=== PATIENT | female | born 1980 | race Caucasian/White ===

== ENCOUNTER 2017-02-02 15:03 | Emergency (ER) | payer MEDICARE, MEDICAID ==
[~2017-02-02 15:03] MED LIST: ABILIFY2 M1 PO; ALBUTEROL INHALER; ALBUTEROL SULF8.5 GM INH; AMBIEN10 MG PO; ANALGESIC BALM30 G1 EXT; BACTROBAN22 GM TP; CARDIZEM90 MG PO; CITRATE OF MAG300 ML PO; CLARITIN-D 121 EACH PO; CULTURELLE1 EAC1 PO; DEPAKOTE ER500 M1 PO; DILTIAZEM HCL PO; DILTIAZEM HCL90 M1 PO; DULCOLAX10 MG/SUPP RC; DUONEB 2.5-0.5 M3 ML IH; EFFEXOR XR75 MG PO; EFFEXOR75 M1 PO; INDOMETHACIN25 M1 PO; IPRAT-ALBUT 0.5-3 ML INH; KLOR-CON M20 MEQ/TAB PO; KLOR-CON M2020 MEQ PO; LEVAQUIN750 M1 PO; LEVAQUIN750 MG PO; LEXAPRO20 MG; LOPRESSOR25 MG/TA7 PO; LOVENOX40 MG/0.4 SQ; MIRALAX17 G1 PO; MOTRIN800 MG PO; MUCINEX1200 MG PO; MYCOSTATIN15 GM TP; NEURONTIN100 M1 PO; NICODERM CQ1 EAC1 TD; NORCO 5/3251 TA1 PO; NYSTATIN60 ML PO; PERIDEX480 ML MM; PREDNISONE10 M1 PO; PREDNISONE50 M1 PO; PRENATAL1 TAB; PROAIR HFA8.5 GM INH; PROVENTIL HFA6.7 GM IH; SENNA GT; STERAPRED10 MG/DOSE PO; SUDOGEST60 MG/TAB PO; SYMBICORT 160-4.6 GM IH; TAMIFLU75 MG/CAP NG; TAMIFLU75 MG/CAP PO; TOBRAMYCIN-DEXAM5 M2; TYLENOL325 M1 PO; XANAX0.5 MG PO; ZEGERID 40 MG P1 PKT PO; [UNRECOGNIZED DRUG - OTHER] PO
[2017-02-02] MEDS ORDERED: PROVENTIL HFA6.7 G1 PO (15:21)
[2017-02-02 16:17] LABS: BASO % 0.1 % (0-2); EOS % 1.6 % (0-7); EOSINOPHIL ABSOLUTE COUNT 0.2 tho/cmm (0.0-0.7); HCT-HEMATOCRIT 42.4 % (34.0-49.0); HGB-HEMOGLOBIN 13.5 gm/dl (12.0-15.5); IMMATURE GRANULOCYTES ABSOLUTE 0.05 tho/cmm (0-0.03); IMMATURE GRANULOCYTES PERCENT 0.4 % (0-0.3); LYMPH % 17.8 % (20-45); MCH (MEAN CORPUSCULAR HGB) 32.3 pg (28.0-32.0); MCHC MEAN CORPUSCULAR HGB CONC 31.8 % (32.0-36.0); MCV (MEAN CELL VOLUME) 101.4 fl (82.0-96.0); MEAN PLATELET VOLUME 9.5 cmc (9.4-12.4); MONO % 5.1 % (0-12); MONOCYTE ABSOLUTE COUNT 0.6 tho/cmm (0.0-1.2); NEUTROPHIL ABSOLUTE COUNT 8.4 tho/cmm (1.6-8.0); NEUTROPHIL-AUTOMATED 8.4 tho/cmm (1.6-8.0); PLATELET COUNT 355 tho/cmm (150-450); RED BLOOD COUNT 4.18 mil/cmm (4.00-5.20); RED CELL DISTRIBUTION WIDTH 12.9 % (12.4-16.4); WHITE BLOOD COUNT 11.2 tho/cmm (4.0-10.0)
[2017-02-02 16:29] LABS: ANION GAP 6 mmol/L (0-20); BLOOD UREA NITROGEN 3 mg/dl (6-24); CALCIUM 8.2 mg/dl (8.5-10.5); CARBON DIOXIDE-VENOUS 37 mmol/L (22-32); CHLORIDE 102 mmol/l (96-110); CREATININE 0.44 mg/dl (0.50-1.10); GLUCOSE 77 mg/dL (70-110); POTASSIUM 4.1 mmol/L (3.7-5.1); SODIUM 141 mmol/L (135-145); eGFR VALUE FOR BLACK >90 mL/Min
[2017-02-02] MEDS ORDERED: PREDNISONE20 M1 PO (16:43)
[2017-02-02] MEDS ORDERED: ALBUTEROL1.25 MG/3 INH (16:43)
[2017-02-03] MEDS ORDERED: PREDNISONE20 M1 PO (22:07)
[2017-02-03] MEDS ORDERED: ALBUTEROL1.25 MG/3 INH (22:07)
[2017-02-03] MEDS ORDERED: VENTOLIN HFA18 G2 PO (22:08)
[2017-02-03] MEDS ORDERED: SYMBICORT 160-1 PUFF INH (22:09)
== END 2017-02-02 17:16 ==
LOC: EDMED 15:03
PROVIDERS: Emergency Medicine
DX: J45.901 Unspecified asthma with (acute) exacerbation (principal); Z88.0 Allergy status to penicillin; F17.200 Nicotine dependence, unspecified, uncomplicated
CPT/HCPCS: J2930

== ENCOUNTER 2017-02-03 21:16 | Inpatient (IN) | payer MEDICARE, MEDICAID ==
[~2017-02-03 21:16] MED LIST changes: +ALBUTEROL1.25 MG/3 INH; +PREDNISONE20 M1 PO; +PROVENTIL HFA6.7 G1 PO
[2017-02-03 21:48] LABS: BASO % 0.1 % (0-2); EOS % 0.1 % (0-7); HCT-HEMATOCRIT 44.5 % (34.0-49.0); HGB-HEMOGLOBIN 14.3 gm/dl (12.0-15.5); IMMATURE GRANULOCYTES ABSOLUTE 0.09 tho/cmm (0-0.03); IMMATURE GRANULOCYTES PERCENT 0.7 % (0-0.3); LYMPH ABSOLUTE COUNT 1.5 tho/cmm (0.8-4.5); MCH (MEAN CORPUSCULAR HGB) 32.1 pg (28.0-32.0); MCHC MEAN CORPUSCULAR HGB CONC 32.1 % (32.0-36.0); MEAN PLATELET VOLUME 10.3 cmc (9.4-12.4); MONO % 7.6 % (0-12); NEUTROPHIL ABSOLUTE COUNT 10.8 tho/cmm (1.6-8.0); NEUTROPHIL-AUTOMATED 10.8 tho/cmm (1.6-8.0); NEUTROPHILS % 80.5 % (40-80); PLATELET COUNT 441 tho/cmm (150-450); RED BLOOD COUNT 4.45 mil/cmm (4.00-5.20); RED CELL DISTRIBUTION WIDTH 13.2 % (12.4-16.4); WHITE BLOOD COUNT 13.5 tho/cmm (4.0-10.0)
[2017-02-03 22:06] LABS: BLOOD UREA NITROGEN 8 mg/dl (6-24); CARBON DIOXIDE-VENOUS 35 mmol/L (22-32); CHLORIDE 102 mmol/l (96-110); CREATININE 0.59 mg/dl (0.50-1.10); SODIUM 141 mmol/L (135-145); eGFR VALUE FOR BLACK >90 mL/Min
[2017-02-03] MEDS ORDERED: ALBUTEROL1.25 MG/3 INH (22:07)
[2017-02-03] MEDS ORDERED: PREDNISONE20 M1 PO (22:07)
[2017-02-03] MEDS ORDERED: VENTOLIN HFA18 G2 PO (22:08)
[2017-02-03] MEDS ORDERED: SYMBICORT 160-1 PUFF INH (22:09)
[2017-02-03 22:32] LABS: PROCALCITONIN <0.05 ng/ml (0.05-0.09)
[2017-02-03 22:39] LABS: ANION GAP 8 mmol/L (0-20); GLUCOSE 131 mg/dL (70-110); POTASSIUM 4.3 mmol/L (3.7-5.1)
[2017-02-04 01:47] LABS: ALB/GLOB RATIO 0.8 (0.8-2.0); ALBUMIN 2.9 g/dl (3.5-5.0); ALKALINE PHOSPHATASE 72 U/L (33-138); ALT/SGPT 19 U/L (12-78); BILIRUBIN,TOTAL 0.1 mg/dl (0-1.5); BLOOD UREA NITROGEN 8 mg/dl (6-24); CALCIUM 7.8 mg/dl (8.5-10.5); CARBON DIOXIDE-VENOUS 32 mmol/L (22-32); CHLORIDE 106 mmol/l (96-110); CREATININE 0.59 mg/dl (0.50-1.10); GLUCOSE 126 mg/dL (70-110); SODIUM 144 mmol/L (135-145); eGFR VALUE FOR BLACK >90 mL/Min
[2017-02-04 02:00] LABS: ANION GAP 10 mmol/L (0-20); AST/SGOT 14 U/L (10-40); POTASSIUM 4.4 mmol/L (3.7-5.1)
[2017-02-04 02:27] LABS: URINE BILIRUBIN NEGATIVE (NEG); URINE BLOOD NEGATIVE (NEG); URINE GLUCOSE (UA) NEGATIVE (NEG); URINE KETONE NEGATIVE (NEG); URINE LEUKOCYTE ESTERASE NEGATIVE (NEG); URINE NITRITE NEGATIVE (NEG); URINE PROTEIN NEGATIVE (NEG)
[2017-02-04 02:38] LABS: URINE APPEARANCE CLEAR; URINE COLOR YELLOW
[2017-02-04 02:41] LABS: URINE EPITHELIAL CELLS 0-5 /[HPF] (0-10); URINE RBC 0 /[HPF] (0-5); URINE WBC 0-1 /[HPF] (0-5)
[2017-02-04 05:56] LABS: BASO % 0.1 % (0-2); HGB-HEMOGLOBIN 12.4 gm/dl (12.0-15.5); IMMATURE GRANULOCYTES ABSOLUTE 0.05 tho/cmm (0-0.03); IMMATURE GRANULOCYTES PERCENT 0.5 % (0-0.3); LYMPH % 7.8 % (20-45); LYMPH ABSOLUTE COUNT 0.9 tho/cmm (0.8-4.5); MCH (MEAN CORPUSCULAR HGB) 31.4 pg (28.0-32.0); MCV (MEAN CELL VOLUME) 101.3 fl (82.0-96.0); MEAN PLATELET VOLUME 9.7 cmc (9.4-12.4); MONO % 2.3 % (0-12); MONOCYTE ABSOLUTE COUNT 0.3 tho/cmm (0.0-1.2); NEUTROPHIL ABSOLUTE COUNT 9.8 tho/cmm (1.6-8.0); NEUTROPHIL-AUTOMATED 9.8 tho/cmm (1.6-8.0); NEUTROPHILS % 89.3 % (40-80); PLATELET COUNT 372 tho/cmm (150-450); RED BLOOD COUNT 3.95 mil/cmm (4.00-5.20)
[2017-02-04 06:53] LABS: ANION GAP 11 mmol/L (0-20); BLOOD UREA NITROGEN 9 mg/dl (6-24); CALCIUM 7.7 mg/dl (8.5-10.5); CARBON DIOXIDE-VENOUS 32 mmol/L (22-32); CHLORIDE 104 mmol/l (96-110); GLUCOSE 161 mg/dL (70-110); SODIUM 143 mmol/L (135-145); eGFR VALUE FOR BLACK >90 mL/Min
[2017-02-05 05:41] LABS: BASO % 0.1 % (0-2); HCT-HEMATOCRIT 40.9 % (34.0-49.0); HGB-HEMOGLOBIN 12.6 gm/dl (12.0-15.5); IMMATURE GRANULOCYTES PERCENT 0.9 % (0-0.3); LYMPH % 13.3 % (20-45); LYMPH ABSOLUTE COUNT 1.5 tho/cmm (0.8-4.5); MCH (MEAN CORPUSCULAR HGB) 31.3 pg (28.0-32.0); MCHC MEAN CORPUSCULAR HGB CONC 30.8 % (32.0-36.0); MCV (MEAN CELL VOLUME) 101.7 fl (82.0-96.0); MEAN PLATELET VOLUME 9.8 cmc (9.4-12.4); MONO % 4.7 % (0-12); MONOCYTE ABSOLUTE COUNT 0.5 tho/cmm (0.0-1.2); NEUTROPHIL ABSOLUTE COUNT 8.9 tho/cmm (1.6-8.0); NEUTROPHIL-AUTOMATED 8.9 tho/cmm (1.6-8.0); PLATELET COUNT 381 tho/cmm (150-450); RED BLOOD COUNT 4.02 mil/cmm (4.00-5.20)
[2017-02-05 06:12] LABS: ANION GAP 9 mmol/L (0-20); BLOOD UREA NITROGEN 7 mg/dl (6-24); CALCIUM 8.9 mg/dl (8.5-10.5); CARBON DIOXIDE-VENOUS 36 mmol/L (22-32); CHLORIDE 103 mmol/l (96-110); CREATININE 0.57 mg/dl (0.50-1.10); GLUCOSE 122 mg/dL (70-110); POTASSIUM 4.4 mmol/L (3.7-5.1); SODIUM 144 mmol/L (135-145); eGFR VALUE FOR BLACK >90 mL/Min
[2017-02-05] MEDS ORDERED: PREDNISONE10 M1 PO (10:47)
[2017-02-05] MEDS ORDERED: LEVAQUIN750 M1 PO (10:48)
[2017-02-05] MEDS ORDERED: MUCINEX SINUS-1 EAC3 PO (10:54)
== END 2017-02-05 12:55 | DRG 189 ==
LOC: EDMED 21:16 → EMR2 23:15 → 5WE 02-04 00:45
PROVIDERS: Emergency Medicine; Family Medicine; ADMIT Hospitalist
PROC: 05HF33Z Insertion of Infusion Device into Left Cephalic Vein, Percutaneous Approach (ICD-10-PCS; principal; 2017-02-04)
DX: J96.21 Acute and chronic respiratory failure with hypoxia (principal); J18.1 Lobar pneumonia, unspecified organism; Z99.81 Dependence on supplemental oxygen; J44.0 Chronic obstructive pulmonary disease with (acute) lower respiratory infection; J45.901 Unspecified asthma with (acute) exacerbation; J44.1 Chronic obstructive pulmonary disease with (acute) exacerbation; Z68.41 Body mass index [BMI] 40.0-44.9, adult; F17.210 Nicotine dependence, cigarettes, uncomplicated; Z71.6 Tobacco abuse counseling; Z86.19 Personal history of other infectious and parasitic diseases; I10 Essential (primary) hypertension; F32.9 Major depressive disorder, single episode, unspecified; F41.9 Anxiety disorder, unspecified; E66.01 Morbid (severe) obesity due to excess calories
CPT/HCPCS: C1751; J1650; J1956; J2930; J7030

== ENCOUNTER 2017-02-18 10:12 | Inpatient (IN) | payer MEDICARE, MEDICAID ==
[~2017-02-18 10:12] MED LIST changes: +MUCINEX SINUS-1 EAC3 PO; +SYMBICORT 160-1 PUFF INH; +VENTOLIN HFA18 G2 PO
[2017-02-18 11:12] LABS: ABG CO2 ARTERIAL 39 mmol/L (21-27); ARTERIAL BLD GAS O2 SATURATION 94 % (95-98); ARTERIAL PO2 74 mmHg (70-100); BICARBONATE 36 mmol/L (21-28); BLOOD GAS BASE EXCESS 6 mM/L (-/+3); PH 7.26 Units (7.35-7.45)
[2017-02-18 11:15] LABS: BASO % 0.3 % (0-2); EOS % 0.5 % (0-7); HCT-HEMATOCRIT 43.1 % (34.0-49.0); HGB-HEMOGLOBIN 13.4 gm/dl (12.0-15.5); IMMATURE GRANULOCYTES ABSOLUTE 0.06 tho/cmm (0-0.03); LYMPH % 21.7 % (20-45); LYMPH ABSOLUTE COUNT 1.4 tho/cmm (0.8-4.5); MCH (MEAN CORPUSCULAR HGB) 31.7 pg (28.0-32.0); MCHC MEAN CORPUSCULAR HGB CONC 31.1 % (32.0-36.0); MCV (MEAN CELL VOLUME) 101.9 fl (82.0-96.0); MEAN PLATELET VOLUME 9.9 cmc (9.4-12.4); MONO % 14.2 % (0-12); MONOCYTE ABSOLUTE COUNT 0.9 tho/cmm (0.0-1.2); NEUTROPHIL ABSOLUTE COUNT 3.9 tho/cmm (1.6-8.0); NEUTROPHIL-AUTOMATED 3.9 tho/cmm (1.6-8.0); NEUTROPHILS % 62.3 % (40-80); PLATELET COUNT 176 tho/cmm (150-450); RED BLOOD COUNT 4.23 mil/cmm (4.00-5.20); RED CELL DISTRIBUTION WIDTH 13.8 % (12.4-16.4); WHITE BLOOD COUNT 6.3 tho/cmm (4.0-10.0)
[2017-02-18 11:17] LABS: ARTERIAL BLOOD GAS PCO2 83 mmHg (32-45)
[2017-02-18 11:37] LABS: ALB/GLOB RATIO 0.8 (0.8-2.0); ALBUMIN 2.8 g/dl (3.5-5.0); ALKALINE PHOSPHATASE 59 U/L (33-138); ALT/SGPT 21 U/L (12-78); BILIRUBIN,TOTAL 0.2 mg/dl (0-1.5); BLOOD UREA NITROGEN 5 mg/dl (6-24); CALCIUM 8.1 mg/dl (8.5-10.5); CARBON DIOXIDE-VENOUS 36 mmol/L (22-32); CHLORIDE 101 mmol/l (96-110); CREATININE 0.56 mg/dl (0.50-1.10); GLUCOSE 91 mg/dL (70-110); SODIUM 141 mmol/L (135-145); eGFR VALUE FOR BLACK >90 mL/Min
[2017-02-18 11:39] LABS: ANION GAP 9 mmol/L (0-20); AST/SGOT 25 U/L (10-40); POTASSIUM 4.7 mmol/L (3.7-5.1)
[2017-02-18 11:55] LABS: PROCALCITONIN <0.05 ng/ml (0.05-0.09)
[2017-02-18 13:01] LABS: PREGNANCY-SERUM NEGATIVE (NEGATIVE)
[2017-02-18 13:34] LABS: ABG CO2 ARTERIAL 36 mmol/L (21-27); ARTERIAL BLD GAS O2 SATURATION 91 % (95-98); ARTERIAL BLOOD GAS PCO2 64 mmHg (32-45); ARTERIAL PO2 61 mmHg (70-100); BICARBONATE 34 mmol/L (21-28); BLOOD GAS BASE EXCESS 7 mM/L (-/+3); PH 7.35 Units (7.35-7.45)
[2017-02-19 05:38] LABS: BASO % 0.2 % (0-2); HCT-HEMATOCRIT 41.5 % (34.0-49.0); HGB-HEMOGLOBIN 12.7 gm/dl (12.0-15.5); IMMATURE GRANULOCYTES ABSOLUTE 0.02 tho/cmm (0-0.03); IMMATURE GRANULOCYTES PERCENT 0.4 % (0-0.3); LYMPH % 14.5 % (20-45); LYMPH ABSOLUTE COUNT 0.7 tho/cmm (0.8-4.5); MCH (MEAN CORPUSCULAR HGB) 31.1 pg (28.0-32.0); MCHC MEAN CORPUSCULAR HGB CONC 30.6 % (32.0-36.0); MCV (MEAN CELL VOLUME) 101.5 fl (82.0-96.0); MEAN PLATELET VOLUME 9.8 cmc (9.4-12.4); MONO % 5.9 % (0-12); MONOCYTE ABSOLUTE COUNT 0.3 tho/cmm (0.0-1.2); NEUTROPHIL ABSOLUTE COUNT 3.6 tho/cmm (1.6-8.0); NEUTROPHIL-AUTOMATED 3.6 tho/cmm (1.6-8.0); RED BLOOD COUNT 4.09 mil/cmm (4.00-5.20); RED CELL DISTRIBUTION WIDTH 13.6 % (12.4-16.4); WHITE BLOOD COUNT 4.6 tho/cmm (4.0-10.0)
[2017-02-19 05:40] LABS: PLATELET COUNT 288 tho/cmm (150-450)
[2017-02-19 05:49] LABS: ANION GAP 8 mmol/L (0-20); BLOOD UREA NITROGEN 4 mg/dl (6-24); CALCIUM 8.5 mg/dl (8.5-10.5); CARBON DIOXIDE-VENOUS 39 mmol/L (22-32); CHLORIDE 102 mmol/l (96-110); CREATININE 0.54 mg/dl (0.50-1.10); POTASSIUM 5.2 mmol/L (3.7-5.1); SODIUM 144 mmol/L (135-145); eGFR VALUE FOR BLACK >90 mL/Min
[2017-02-19 06:03] LABS: GLUCOSE 152 mg/dL (70-110)
[2017-02-20 05:31] LABS: BLOOD UREA NITROGEN 7 mg/dl (6-24); CALCIUM 8.7 mg/dl (8.5-10.5); CARBON DIOXIDE-VENOUS 37 mmol/L (22-32); CHLORIDE 100 mmol/l (96-110); GLUCOSE 182 mg/dL (70-110); SODIUM 145 mmol/L (135-145); eGFR VALUE FOR BLACK >90 mL/Min
[2017-02-20 05:38] LABS: ANION GAP 12 mmol/L (0-20); CREATININE 0.82 mg/dl (0.50-1.10); POTASSIUM 4.4 mmol/L (3.7-5.1)
[2017-02-21 05:23] LABS: HGB-HEMOGLOBIN 13.1 gm/dl (12.0-15.5); PLATELET COUNT 301 tho/cmm (150-450)
[2017-02-21] MEDS ORDERED: CEFDINIR300 M1 PO (16:03)
[2017-02-21] MEDS ORDERED: PREDNISONE10 M1 (16:08)
== END 2017-02-21 17:00 | DRG 871 ==
LOC: EDMED 10:12 → EMR2 12:50 → PCUB 14:28
PROVIDERS: Emergency Medicine; ADMIT Family Medicine
PROC: 02HV33Z Insertion of Infusion Device into Superior Vena Cava, Percutaneous Approach (ICD-10-PCS; principal; 2017-02-19)
PROC: B548ZZA Ultrasonography of Superior Vena Cava, Guidance (ICD-10-PCS; 2017-02-19)
DX: A41.9 Sepsis, unspecified organism (principal); J18.9 Pneumonia, unspecified organism; J96.21 Acute and chronic respiratory failure with hypoxia; J44.0 Chronic obstructive pulmonary disease with (acute) lower respiratory infection; J45.51 Severe persistent asthma with (acute) exacerbation; J44.1 Chronic obstructive pulmonary disease with (acute) exacerbation; J96.22 Acute and chronic respiratory failure with hypercapnia; Z68.41 Body mass index [BMI] 40.0-44.9, adult; E66.01 Morbid (severe) obesity due to excess calories; F17.200 Nicotine dependence, unspecified, uncomplicated; F32.9 Major depressive disorder, single episode, unspecified; I10 Essential (primary) hypertension; Y95 Nosocomial condition
CPT/HCPCS: C1751; G8978-GP-CH; G8979-GP-CH; G8980-GP-CH; J0692; J1650; J2930; J3370; J7030; J7050